=== PATIENT | female | born 1970 | race Caucasian/White ===

== ENCOUNTER → 2016-09-01 | Outpatient (CLI) | payer BC ==
--- NOTE | 2016-09-01 10:37 | DI ---
GALLBLADDER AND LIVER ULTRASOUND, 09/01/2016 9:22 AM: Clinical History: Right upper quadrant pain. Previous Exam: None at this facility. Technique: Scans are performed through the right upper quadrant in multiple projections. The patient was rolled from side to side and the gallbladder was balloted with the probe to facilitate visualizat ion of small gallstones. The gallbladder is well distended and has a normal wall thickness. There are multiple 3-4 mm gallston es in the dependent portions of the gallbladder with acoustical shadowing. The common bile duct measu res 3 mm. The pancreas is visualized from the head to the body and is normal. The visualized portions of the liver, right kidney, and IVC are normal. The aorta is normal. Readin. Cholelithiasis. There is no evidence of cholecystitis. There is no Hernández's sign. The common bile duct measures 3 mm. 2. The liver, right kidney, pancreas, IVC, and aorta are normal.
== END ==
LOC: US 09:16
PROVIDERS: ATTEND Family Medicine
DX: R10.11 Right upper quadrant pain (principal); K80.20 Calculus of gallbladder without cholecystitis without obstruction
CPT/HCPCS: 76705